=== PATIENT | male | born 1990 | race Caucasian/White ===

== ENCOUNTER → 2021-04-19 | Outpatient (REF) ==
[~2021-04-19] MED LIST: NAPR-885 PO
--- NOTE | 2021-04-19 11:14 | REP ---
INDICATION: PAIN COMPARISON: None. TECHNIQUE: AP and frog-lateral views of the right hip FINDINGS: Osseous structures, joint spaces, and surrounding soft tissues appear relatively normal and age-appropriate. No evidence for acute or healed injury. No overt arthritic changes. IMPRESSION: Age-appropriate right hip radiographs. <Electronically signed by Hans Phillips > 04/19/21 [id number]
== END ==
LOC: M PLAIMG 10:00
PROVIDERS: ATTEND Internal Medicine
DX: R52 Pain, unspecified (principal)